=== PATIENT | female | born 1990 | race African-American/Black ===

== ENCOUNTER 2019-01-22 22:48 | Emergency (ER) | payer MEDICAID ==
[~2019-01-22] VITALS: Ht 167.6 cm; Wt 77.2 kg
[2019-01-22 22:53] VITALS: BP 158/74
[2019-01-23] MEDS ORDERED: cefTRIAXone W LIDOCAINE 1 GM IM IM ONE (00:15)
[2019-01-23] MEDS ORDERED: IBUPROFEN 600 MG TAB PO ONE (00:30)
[2019-01-23] MEDS ORDERED: cefTRIAXone SOD 1,000 MG VL ONE (00:36)
[2019-01-23] MEDS ORDERED: LIDOCAINE 2% (LOCAL ANESTH.) PF 5ml SDV ONE (00:36)
== END 2019-01-23 00:45 | disposition home or self-care (01) ==
LOC: ER 22:50
DX: J03.90 Acute tonsillitis, unspecified (principal)
CPT/HCPCS: 87804; 96372; 99283; J0696; J2001